=== PATIENT | female | born 1990 | race African-American/Black ===

== ENCOUNTER 2021-05-25 09:26 | Emergency (ER) | payer MEDICAID ==
[~2021-05-25] VITALS: Ht 152.4 cm; Wt 104.3 kg
--- NOTE | 2021-05-25 09:46 | NUR ---
at bedside for assessment
[2021-05-25] MEDS ORDERED: ALBU6.7H9 PO (09:52)
[2021-05-25] MEDS ORDERED: IV NORMAL SALINE 1000 ML BAG IV ONE (10:00)
[2021-05-25] MEDS ORDERED: METOCLOPRAMIDE HCL 10 MG/2 ML VIAL IV ONE (10:00)
[2021-05-25] MEDS ORDERED: MECLIZINE HCL 25 MG TABLET PO ONE (10:00)
[2021-05-25 10:16] LABS: HEMATOCRIT 37.5 % (31.2-41.9); MEAN CORPUSCULAR HEMOGLOBIN 26.7 uug (24.7-32.8); MEAN CORPUSCULAR VOLUME 85.9 fL (75.5-95.3); PLATELET COUNT (AUTO) 240 K/uL (179-408)
[2021-05-25] MEDS ORDERED: MECLIZINE HCL 25 MG TABLET ONE (10:16)
[2021-05-25] MEDS ORDERED: METOCLOPRAMIDE HCL 10 MG/2 ML VIAL ONE (10:17)
--- NOTE | 2021-05-25 10:19 | NUR ---
Patient taken to radiology department for CT at this time
[2021-05-25 10:23] LABS: CREATININE 0.7 mg/dL (0.6-1.3); POTASSIUM 4.2 mmol/L (3.5-5.1)
--- NOTE | 2021-05-25 10:28 | NUR ---
Patient returned from radiology department at this time
[2021-05-25 10:29] LABS: BILIRUBIN,DIRECT 0.1 mg/dL (0.0-0.2); BILIRUBIN,TOTAL 0.3 mg/dL (0.2-1.0); MAGNESIUM 2.2 mg/dL (1.8-2.4); PHOSPHOROUS 2.1 mg/dL (2.5-4.9)
[2021-05-25] MEDS ORDERED: NEUTRA PHOS PACKET PO ONE (10:45)
--- NOTE | 2021-05-25 10:51 | NUR ---
awaiting for neutrophos supplement to arrive from pharmacy
[2021-05-25 11:31] LABS: *URINE HCG, QUAL NEGATIVE (NEGATIVE)
[2021-05-25] MEDS ORDERED: MECL-159 PO (11:46)
[2021-05-25] MEDS ORDERED: PHOS250T2 PO (11:48)
--- NOTE | 2021-05-25 12:13 | NUR ---
Patient discharged to home in stable condition. Took all belongings, no signs of acute distress. Written and verbal after care instructions given. Patient verbalizes understanding of instructions. Stressed follow up or return to ER for worsening s/s.
[2021-05-25 12:23] VITALS: BP 125/86
== END 2021-05-25 12:05 | disposition home or self-care (01) ==
LOC: ER 09:26
DX: A88.1 Epidemic vertigo (principal); E83.39 Other disorders of phosphorus metabolism; E66.01 Morbid (severe) obesity due to excess calories; Z68.41 Body mass index [BMI] 40.0-44.9, adult; J45.909 Unspecified asthma, uncomplicated
CPT/HCPCS: 70450; 80048; 80076; 83735; 84100; 84703; 85025; 96361; 96374; 99284; J2765; A4663; J7030; J8597

== ENCOUNTER 2021-07-31 09:00 | Emergency (ER) | payer OTHER ==
[~2021-07-31] VITALS: Ht 152.4 cm; Wt 104.3 kg
[~2021-07-31 09:00] MED LIST: ALBU6.7H9 PO; MECL-159 PO; PHOS250T2 PO
--- NOTE | 2021-07-31 10:55 | NUR ---
Patient discharged to home in stable condition. Written and verbal after care instructions given. Patient verbalizes understanding of instructions. Stressed follow up or return to ER for worsening s/s.
[2021-07-31 10:56] VITALS: BP 125/87
== END 2021-07-31 10:57 | disposition home or self-care (01) ==
LOC: ER 09:00
DX: R05 Cough (principal); Z20.822 Contact with and (suspected) exposure to COVID-19; R07.9 Chest pain, unspecified; I44.0 Atrioventricular block, first degree; E66.9 Obesity, unspecified; Z68.41 Body mass index [BMI] 40.0-44.9, adult; J45.909 Unspecified asthma, uncomplicated
CPT/HCPCS: 71045; 93005; A4663